=== PATIENT | female | born 1965 | race Two or more races ===

== ENCOUNTER 2017-08-11 13:55 | Emergency (ER) | payer OTHER ==
[~2017-08-11] VITALS: Ht 160 cm; Wt 70.8 kg
[2017-08-11] MEDS ORDERED: ASPIRIN81 MG ORAL (14:18)
[2017-08-11] MEDS ORDERED: AMLODIPINE BESYL5 MG ORAL (14:18)
[2017-08-11] MEDS ORDERED: HYDRALAZINE HCL10 MG ORAL (14:22)
[2017-08-11] MEDS ORDERED: ATORVASTATIN CA40 MG ORAL (14:22)
[2017-08-11] MEDS ORDERED: LOVENOX10 M4 SUBQ (14:22)
[2017-08-11] MEDS ORDERED: GABAPENTIN300 MG ORAL (14:22)
[2017-08-11] MEDS ORDERED: FERROUS SULFAT325 MG ORAL (14:22)
[2017-08-11] MEDS ORDERED: FLORASTOR250 MG ORAL (14:22)
[2017-08-11] MEDS ORDERED: FAMOTIDINE20 MG ORAL (14:22)
[2017-08-11 14:25] VITALS: BP 131/98
[2017-08-11] MEDS ORDERED: LORazepam 0.5mg tab GT ONE (14:30)
--- NOTE | 2017-08-11 14:31 | Emergency Room Report ---
History of Present Illness General Chief Complaint: Dizziness Source: Patient, EMS Present Illness HPI 55-year-old female brought in by EMS from SNF for dizziness for one month. Patient states dizziness is worse with moving head, changing position. 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 No worsening acute weakness on left or right side. Patient on trach mask with G-tube. Allergies: Coded Allergies: No Known Allergies (Unverified , 08/11/17) Patient History Past Medical History: old chart reviewed, unable to obtain Past Surgical History: none Social History: Denies: smoking, alcohol use, drug use Now: No Immunizations: UTD Reviewed Nursing Documentation: PMH: Agreed, PSxH: Agreed Nursing Documentation-PMH Past Medical History: No History, Except For Hx Cerebrovascular Accident: Yes - left sided weakness Review of Systems All Other Systems: negative except mentioned in HPI Physical Exam Vital Signs Date Time Temp Pulse Resp B/P (MAP) Pulse Ox O2 Delivery O2 Flow Rate FiO2 08/11/17 13:58 98.2 79 18 134/71 100 Venturi Mask 4.0 Sp02 EP Interpretation: reviewed, normal General Appearance: normal inspection, well appearing, no apparent distress, alert, GCS 15, non-toxic Head: normocephalic, atraumatic Eyes: bilateral eye PERRL, bilateral eye EOMI, bilateral eye other - + bilateral horizontal nystagmus ENT: normal ENT inspection, hearing grossly normal, normal pharynx, no angioedema, normal voice, TMs + canals normal, uvula midline, moist mucus membranes Neck: normal inspection, full range of motion, supple, thyroid normal, no meningismus, no bony tend, tracheotomy Respiratory: normal inspection, lungs clear, normal breath sounds, no rhonchi, no respiratory distress, no retraction, no accessory muscle use, no wheezing, speaking full sentences Cardiovascular #1: regular rate, rhythm, no edema, no JVD, normal capillary refill Gastrointestinal: normal inspection, normal bowel sounds, non tender, soft, no mass, no peritonitis, non-distended, no guarding, no hernia, no pulsatile mass Genitourinary: no CVA tenderness Musculoskeletal: normal inspection, back normal, normal range of motion, no calf tenderness, pelvis stable, Gatito's Sign negative Neurologic: normal inspection, alert, oriented x3, responsive, locomotive supervisor III-XII nml as tested, cerebellar normal, normal gait, speech normal, other - Left arm leg 3 /5 strength vs right 5/5 Psychiatric: normal inspection, judgement/insight normal, mood/affect normal, no suicidal/homicidal ideation, no delusions Skin: normal inspection, normal color, no rash Lymphatic: normal inspection, no adenopathy Medical Decision Making Diagnostic Impression: Primary Impression: Vertigo Additional Impressions: BPPV (benign paroxysmal positional vertigo) Qualified Codes: H81.10 - Benign paroxysmal vertigo, unspecified ear UTI (urinary tract infection) Qualified Codes: N39.0 - Urinary tract infection, site not specified ER Course vertigo likely multifactorial - Symptoms c/w BPPV given exacerbated by head movement, bilateral nystagmus; Improved with benzos - also has nitrite positive UTI. Is bedbound - likely also contributing. Was given initial IV Rocephin for infection. And Rx Keflex for UTI. - Not septic appearing - vitals stable. No leuks. Can be treated at SNF with PO Abx per Gtube. Vital signs stable, afebrile Unlikely ischemia as cause of vertigo given normal sinus rhythm and no ischemia on EKG and troponin within normal limits No appreciable new focal neurological deficits to suggest CVA as cause of weakness DC back to SNF ER course: Patient has remained stable during ED stay. Patient is to be discharged to home. Prescriptions given are keflex Patient is instructed to follow up with their primary care doctor within 5 days. Strict return precautions discussed with patient such as fever, chills, worsening/severe pain, nausea, vomiting, which may indicate severe illness. Patient verbalizes understanding and agrees with plan. Please note that this Emergency Department Report was dictated using [employer] dentist technology software, occasionally this can lead to erroneous entry secondary to interpretation by the dictation equipment EKG Diagnostic Results Rate: normal Rhythm: NSR ST Segments: no acute changes ASA given to the pt in ED: No Rhythm Strip Diag. Results EP Interpretation: yes Rate: 78 Rhythm: NSR, no PVC's, no ectopy Last Vital Signs Date Time Temp Pulse Resp B/P (MAP) Pulse Ox O2 Delivery O2 Flow Rate FiO2 08/11/17 13:58 98.2 79 18 134/71 100 Venturi Mask 4.0 Status: improved Disposition: XFER SNF Scripts Cephalexin* (KEFLEX*) 500 Mg Capsule 500 MG ORAL Q12HR for 7 Days, #14 CAP 0 Refills Prov: JASSON FLYNN M.D. 08/11/17 JASSON FLYNN M.D. Aug 11, 2017 14:31
[2017-08-11 14:42] LABS: KETONES,URINE NEGATIVE (NEGATIVE); LEUKOCYTE ESTERASE ,URINE 3+ (NEGATIVE); NITRITE,URINE POSITIVE (NEGATIVE); PH,URINE 8 (4.5-8.0); PROTEIN,URINE 2+ (NEGATIVE); UROBILINOGEN,URINE NORMAL MG/DL (0.0-1.0)
[2017-08-11 14:57] LABS: APPEARANCE,URINE SLIGHTLY CLOUDY; BACTERIA,URINE FEW /HPF; SQUAMOUS EPITHELIAL CELL,UR FEW /LPF (NONE/OCC); TRIPLE PHOSPHATE CRYSTAL,UR FEW /LPF
[2017-08-11 15:26] LABS: ANION GAP 5 mmol/L (5-15); CARBON DIOXIDE 34 MMOL/L (21-32); CHLORIDE 101 MMOL/L (98-107); CREATININE 0.5 MG/DL (0.55-1.30); GLOMERULAR FILTRATION RATE > 60 mL/min (>60); POTASSIUM 3.9 MMOL/L (3.5-5.1); SODIUM 140 MMOL/L (136-145)
[2017-08-11 15:29] LABS: BASOPHILS % (AUTO) 1.3 % (0.0-2.0); EOSINOPHILS % (AUTO) 1.9 % (0.0-3.0); LYMPHOCYTES % (AUTO) 17.2 % (20.0-45.0); MEAN CORPUSCULAR HEMOGLOBIN 29.1 PG (27.0-31.0); MEAN CORPUSCULAR HGB CONC 32.3 G/DL (32.0-36.0); MEAN CORPUSCULAR VOLUME 90 FL (80-99); MEAN PLATELET VOLUME 9.5 FL (6.5-10.1); MONOCYTES % (AUTO) 8.4 % (1.0-10.0); NEUTROPHILS % (AUTO) 71.3 % (45.0-75.0); PLATELET COUNT 227 K/UL (150-450); RED BLOOD COUNT 3.98 M/UL (4.20-5.40); RED CELL DISTRIBUTION WIDTH 12.3 % (11.6-14.8); WHITE BLOOD COUNT 7.6 K/UL (4.8-10.8)
[2017-08-11] MEDS ORDERED: cefTRIAXone 1 GM in NS 55 ML IVPB ONE (15:30)
[2017-08-11 15:39] LABS: ALANINE AMINOTRANSFERASE 73 U/L (12-78); ALBUMIN/GLOBULIN RATIO 0.7 (1.0-2.7); ASPARTATE AMINO TRANSFERASE 45 U/L (15-37); CKMB < 0.5 NG/ML (0.0-3.6); TOTAL PROTEIN 7.8 G/DL (6.4-8.2)
[2017-08-11] MEDS ORDERED: KEFLEX500 MG ORAL (15:43)
--- NOTE | 2017-08-11 16:08 | Diagnostic Imaging Report ---
Indication: Dizziness Technique: XRAY Chest 1v Comparison: None Findings: Heart size and mediastinal contours are within normal limits. Tracheostomy tube in place. There is linear opacification in the peripheral left lower lung which is likely related to scarring/atelectasis. No additional focal airspace consolidation is seen. There is no pleural effusion or pneumothorax. Multilevel degenerative changes are seen in the thoracic spine. No acute osseous abnormality is appreciated. Impression: Tracheostomy tube in place. Linear opacity at the left lower lung likely related to scarring/atelectasis. Correlate clinically to exclude the remote possibility of developing pneumonia. Follow-up exam may be obtained as clinically indicated.
[2017-08-11 16:30] VITALS: BP 127/72
[2017-08-11 18:40] VITALS: BP 122/68
--- NOTE | 2017-09-01 15:14 | Cardiology Report ---
APPROVED REPORT EKG Measurement Heart [id number] QT0T0 QTc0 No QRS complexes found, no ECG analysis possible
== END 2017-08-11 18:40 ==
LOC: EDBD 13:55 → EMR 14:31
DX: H81.10 Benign paroxysmal vertigo, unspecified ear (principal); N39.0 Urinary tract infection, site not specified; I69.854 Hemiplegia and hemiparesis following other cerebrovascular disease affecting left non-dominant side
CPT/HCPCS: 36415; 71010; 80053; 80307; 81003; 82550; 82553; 84484; 85025; 93005; 96365; 99284; J0696

== ENCOUNTER → 2017-11-07 | Emergency (ER) | payer MEDICAID, OTHER ==
[~2017-11-07] VITALS: Ht 162.6 cm; Wt 68.0 kg
[~2017-11-07] MED LIST: ACETAMINOP160 MG/5 M ORAL; AMLODIPINE BESYL5 MG ORAL; ASPIRIN81 MG ORAL; ATORVASTATIN CA40 MG ORAL; AZO CRANBERRY1 EAC1 PO; BACTRIM DS TAB1 EAC1 ORAL; FAMOTIDINE20 MG GT; FERROUS SULFAT325 MG GT; FLORASTOR250 MG GT; GABAPENTIN300 MG ORAL; HYDRALAZINE HCL10 MG ORAL; KEFLEX500 MG ORAL; LEVEMIR100 UNIT/1 SUBQ; LOVENOX10 M4 SUBQ; Lidocaine 1% 10mg/ml/Epi 0.005mg/ml 30ml vial INJ ONE; MAGNESIUM500 MG GT; MILK OF MA400 MG/51 GT; MULTI-DELYN237 ML GT; VITAMIN C500 MG/11 GT; ZINC 15 MG LOZE15 MG GT
--- NOTE | 2017-11-07 16:58 | Emergency Room Report ---
History of Present Illness General Chief Complaint: Skin Rash/Abscess Present Illness HPI Patient is a 52-year-old female presented after increased left arm skin rash and abscess. Patient had had multiple locations of discomfort. She reported having some rash to her buttock area as well as to her hands. She reports having increased itchiness. The patient was noted to have prior history of CVA and speaks Tongan Allergies: Coded Allergies: No Known Allergies (Unverified , 08/11/17) Patient History Past Medical History: see triage record Review of Systems All Other Systems: negative except mentioned in HPI Physical Exam Vital Signs Date Time Temp Pulse Resp B/P (MAP) Pulse Ox O2 Delivery O2 Flow Rate FiO2 11/07/17 16:47 98.3 84 20 128/75 100 Nasal Cannula 2.0 98.2 Sp02 EP Interpretation: reviewed, normal General Appearance: normal inspection, well appearing, no apparent distress, alert, Chronically Ill Head: atraumatic ENT: normal ENT inspection, hearing grossly normal, normal voice, other - left facial droop Neck: normal inspection, full range of motion, supple, no bony tend Respiratory: normal inspection, lungs clear, normal breath sounds, no respiratory distress, no retraction, no wheezing Cardiovascular #1: regular rate, rhythm, no edema Gastrointestinal: normal inspection, normal bowel sounds, non tender, soft, no guarding, no hernia Genitourinary: no CVA tenderness Musculoskeletal: normal inspection, back normal, normal range of motion Neurologic: alert, oriented x3, motor weakness, other - left facial droop Psychiatric: normal inspection, judgement/insight normal, mood/affect normal Skin: no rash, other - multiple areas of small erythematous area Procedures Laceration/Wound Repair Laceration/Wound Repair : Consent: Verbal Wound Location: upper extremity Wound's Depth, Shape: linear Wound Length (cm): 1 Betadine Prep?: Yes Anesthesia: Lidocaine w/ Epi Volume Anesthetic (ccs): 3 Patient Tolerated: Well Complications: None Medical Decision Making Diagnostic Impression: Primary Impression: Skin abscess ER Course Patient presented for skin abscess. Differential diagnosis included was not limited to the MRSA, sepsis, tumor among others. Patient has a benign exam and does not appear to require any further imaging or laboratory testing at this time. The patient's left arm abscess was incised and drained with drainage. On material. Patient was given prescription for oral antibiotics. Patient was sent back to her nursing facility via basic embolus. Patient was noted to have history of CVA and some residual left-sided weakness. Last Vital Signs Date Time Temp Pulse Resp B/P (MAP) Pulse Ox O2 Delivery O2 Flow Rate FiO2 11/07/17 16:47 98.3 84 20 128/75 100 Nasal Cannula 2.0 98.2 Status: improved Disposition: [facility] SN[facility] Condition: Stable Scripts Cephalexin* (KEFLEX*) 500 Mg Capsule 500 MG ORAL Q6H, #28 CAP 0 Refills Prov: Jordi Harper 11/07/17 Trimethoprim/Sulfamethoxazole 160/800* (BACTRIM DS TABLET*) 1 Each Tablet 1 TAB ORAL Q12H, #14 TAB 0 Refills Prov: Jordi Harper 11/07/17 Jordi Harper Nov 07, 2017 16:58
[2017-11-07 20:00] VITALS: BP 128/75
== END | disposition home or self-care (01) ==
LOC: EDUNIT# 16:41 → EDBD 17:01 → EMR 18:57
DX: L02.414 Cutaneous abscess of left upper limb (principal)
CPT/HCPCS: 10060; 99284